=== PATIENT | female | born 1990 | race African-American/Black ===

== ENCOUNTER 2017-01-08 23:23 | Emergency (ER) | payer BC ==
[~2017-01-08] VITALS: Ht 165.1 cm; Wt 107.5 kg
[2017-01-08 23:33] VITALS: BP 124/83
[2017-01-09] MEDS ORDERED: MOTRIN800 MG PO (00:12)
[2017-01-09] MEDS ORDERED: AMOXICILLIN500 MG PO (00:12)
== END 2017-01-09 00:25 | disposition home or self-care (01) ==
LOC: EME 23:23 → EXP 23:23
DX: J02.9 Acute pharyngitis, unspecified (principal)
CPT/HCPCS: 99281; 99283

== ENCOUNTER 2017-03-29 00:19 | Emergency (ER) | payer SELFPAY ==
[~2017-03-29] VITALS: Ht 165.1 cm; Wt 113.9 kg
[~2017-03-29 00:19] MED LIST: AMOXICILLIN500 MG PO; MOTRIN800 MG PO
[2017-03-29 01:23] LABS: ADD MIUA? YES; BILIRUBIN NEGATIVE; BLOOD LARGE; COLOR YELLOW ((YELLOW)); GLUCOSE (STRIP) NEGATIVE; KETONES NEGATIVE; LEUKOCYTES TRACE; NITRITE NEGATIVE; PROTEIN (STRIP) 30; SPECIFIC GRAVITY 1.018 (1.000-1.030); UROBILINOGEN 0.2 MG/DL (0.2-1.0)
[2017-03-29 01:35] LABS: HEMATOCRIT 38.3 % (36.0-46.0); MCH 25.5 PG (29.0-34.0); MCHC 31.3 G/DL (30.0-36.0); MCV 81.5 FL (83-99); PLATELET COUNT 370 K/uL (156-360); RBC DIS.WIDTH-CV 14.8 % (11.8-14.6); RBC DIS.WIDTH-SD 43.8 % (39-53); WHITE BLOOD COUNT 9.9 K/uL (4.1-10.2)
[2017-03-29 01:45] LABS: CHLORIDE 106 mEq/L (99-109); POTASSIUM 3.9 mEq/L (3.7-5.4); SODIUM 139 mEq/L (136-147)
[2017-03-29 01:46] LABS: GLUCOSE 94 mg/dL (70-99)
[2017-03-29 01:47] LABS: BACTERIA NONE SEEN /HPF; EPITHELIAL CELLS RARE /HPF; MUCUS TRACE /LPF; RED BLOOD CELLS TNTC /HPF (0-5); UCUL ADDED? NO
[2017-03-29 01:48] LABS: ANION GAP 9 MEQ/L (2-14)
[2017-03-29 01:50] LABS: GFR ESTIMATE (CALCULATED) > 59 mL/min/
[2017-03-29 01:51] LABS: UREA NITROGEN (BUN) 14 mg/dL (9-23)
[2017-03-29 01:59] LABS: QUANTITATIVE HCG 284.9 MIU/ML
[2017-03-29 02:54] VITALS: BP 126/85
== END 2017-03-29 02:58 | disposition home or self-care (01) ==
LOC: EME 00:19
PROVIDERS: Physician Assistant
DX: O20.9 Hemorrhage in early pregnancy, unspecified (principal); O43.891 Other placental disorders, first trimester; Z3A.01 Less than 8 weeks gestation of pregnancy
CPT/HCPCS: 76801; 80048; 81003; 84702; 85027; 86900; 86901; 99281; 99285